=== PATIENT | female | born 1940 | race Caucasian/White ===

== ENCOUNTER 2020-12-01 16:58 | Emergency (ER) | payer OTHER, MEDICARE ==
[~2020-12-01] VITALS: Ht 167.6 cm; Wt 59.0 kg
[2020-12-01 17:03] VITALS: BP_SYST 172
[2020-12-01] MEDS ORDERED: ACETAMINOPHEN 325 MG TABLET PO ONE (17:30)
[2020-12-01 19:31] VITALS: BP_SYST 141
== END 2020-12-01 19:29 | disposition home or self-care (01) ==
LOC: SED 16:58
DX: S00.31XA Abrasion of nose, initial encounter (principal); I10 Essential (primary) hypertension; W01.0XXA Fall on same level from slipping, tripping and stumbling without subsequent striking against object, initial encounter; Y93.89 Activity, other specified; Y92.89 Other specified places as the place of occurrence of the external cause; Y99.8 Other external cause status
CPT/HCPCS: 70450-TC; 70486-TC; 76376; 99285